=== PATIENT | male | born 1985 | race Caucasian/White ===

== ENCOUNTER 2018-04-09 21:58 | Emergency (ER) | payer OTHER ==
[~2018-04-09] VITALS: Ht 188 cm; Wt 87.1 kg
[2018-04-09] MEDS ORDERED: ADDERALL 30 MG30 MG (22:10)
== END 2018-04-10 01:34 | disposition home or self-care (01) ==
LOC: ER 21:58
DX: M25.521 Pain in right elbow (principal); R20.0 Anesthesia of skin; W86.8XXA Exposure to other electric current, initial encounter; Y92.69 Other specified industrial and construction area as the place of occurrence of the external cause